=== PATIENT | female | born 1965 | race Caucasian/White ===

== ENCOUNTER 2017-01-31 21:09 | Emergency (ER) | payer OTHER ==
[~2017-01-31 21:09] MED LIST: AMLODIPINE BESY10 MG PO; ASPIRIN EC81 M1 PO; CATAPRES0.3 MG PO; CLOPIDOGREL75 MG PO; HYDRALAZINE HCL25 MG PO; LIPITOR40 MG PO; METOPROLOL TAR25 MG PO; NORCO 10-325 TA1 TAB; PHENERGAN25 M1; PRILOSEC PO
[2017-01-31] MEDS ORDERED: LOSARTAN POTASS50 MG PO (21:24)
== END 2017-01-31 22:24 | disposition home or self-care (01) ==
LOC: SED 21:09
DX: G44.209 Tension-type headache, unspecified, not intractable (principal); K21.9 Gastro-esophageal reflux disease without esophagitis; I10 Essential (primary) hypertension; E78.5 Hyperlipidemia, unspecified; I25.10 Atherosclerotic heart disease of native coronary artery without angina pectoris; F17.200 Nicotine dependence, unspecified, uncomplicated; Z88.2 Allergy status to sulfonamides; Z88.8 Allergy status to other drugs, medicaments and biological substances
CPT/HCPCS: 99283